=== PATIENT | male | born 1990 | race Caucasian/White ===

== ENCOUNTER 2023-08-24 09:02 | Emergency (ER) | payer SELFPAY ==
[~2023-08-24] VITALS: Ht 170.2 cm; Wt 84.8 kg
[2023-08-24 09:11] VITALS: BP 117/86; PULSE 70; RESP 16; TEMP 98.1; TEMP 98.7; O2SAT 96
[2023-08-24] MEDS: cephALEXin 500 MG CAP PO ONE (10:21)
[2023-08-24] MEDS: IBUPROFEN 600 MG TAB PO ONE (10:21)
[2023-08-24] MEDS ORDERED: BACI-418 TP (10:22)
[2023-08-24] MEDS ORDERED: CEPH-588 PO (10:22)
[2023-08-24 10:32] VITALS: BP 131/65; PULSE 94; RESP 20; TEMP 98.2; O2SAT 100
== END 2023-08-24 10:32 | disposition home or self-care (01) ==
LOC: MED 09:02
DX: S61.210A Laceration without foreign body of right index finger without damage to nail, initial encounter (principal); S61.202A Unspecified open wound of right middle finger without damage to nail, initial encounter; Z79.899 Other long term (current) drug therapy; W26.8XXA Contact with other sharp object(s), not elsewhere classified, initial encounter; Y93.89 Activity, other specified; Y92.89 Other specified places as the place of occurrence of the external cause; Y99.8 Other external cause status
CPT/HCPCS: 73140; 90471; 90715; 96372; 99283

== ENCOUNTER 2023-08-26 09:24 | Emergency (ER) | payer SELFPAY ==
[~2023-08-26] VITALS: Ht 167.6 cm; Wt 88.2 kg
[~2023-08-26 09:24] MED LIST: BACI-418 TP; CEPH-588 PO
[2023-08-26 09:54] VITALS: BP 116/80; PULSE 76; RESP 18; TEMP 97.8; O2SAT 99
[2023-08-26 10:20] VITALS: BP 116/80; PULSE 76; RESP 18; TEMP 97.8; O2SAT 99
== END 2023-08-26 10:25 | disposition home or self-care (01) ==
LOC: MED 09:24
DX: S61.210D Laceration without foreign body of right index finger without damage to nail, subsequent encounter (principal); Z48.00 Encounter for change or removal of nonsurgical wound dressing; Z79.899 Other long term (current) drug therapy; X58.XXXD Exposure to other specified factors, subsequent encounter
CPT/HCPCS: 99281